=== PATIENT | female | born 1960 | race Caucasian/White ===

== ENCOUNTER 2022-10-01 13:24 | Emergency (ER) | payer OTHER ==
[2022-10-01] MEDS ORDERED: KETOROLAC TROMETHAMINE 15 MG/ML VIAL IVPUSH ONE (13:29)
[2022-10-01] MEDS ORDERED: ONDANSETRON 4 MG/2 ML VIAL IVPB ONE (13:29)
[2022-10-01] MEDS ORDERED: SODIUM CHLORIDE 1,000 ML IV STA (13:29)
[2022-10-01] MEDS ORDERED: ONDANSETRON 4 MG/2 ML VIAL ONE (13:46)
[2022-10-01] MEDS ORDERED: KETOROLAC TROMETHAMINE 15 MG/ML VIAL ONE (13:47)
[2022-10-01 13:58] VITALS: BP 180/100; PULSE 86; RESP 16; TEMP 98.3; BMI 28.7
[2022-10-01 14:15] LABS: HEMATOCRIT 49.2 % (32.4-45.2); HEMOGLOBIN 17.3 G/dL (10.7-15.3); MCH 32.6 pg (25.7-33.7); MCHC 35.2 g/dl (32.0-36.0); MEAN CELL VOLUME 92.7 fl (80-96); RBC 5.31 10^6/uL (3.60-5.2); WHITE BLOOD COUNT 8.4 10^3/uL (4.0-10.8)
[2022-10-01 14:22] LABS: CALCIUM 9.8 mg/dl (8.5-10)
[2022-10-01 14:29] LABS: ALBUMIN 4.6 g/dl (3.4-5.0); BILIRUBIN,TOTAL 1.1 mg/dl (0.2-1); CREATININE 0.9 mg/dl (0.55-1.3); TOT PROT 7.3 g/dl (6.4-8.2)
[2022-10-01 15:30] LABS: EPITHELIAL CELLS MODERATE /hpf
== END 2022-10-01 17:19 | disposition home or self-care (01) ==
LOC: FER 13:24
PROC: 3E0333Z Introduction of Anti-inflammatory into Peripheral Vein, Percutaneous Approach (ICD-10-PCS; principal; 2022-10-01)
PROC: 3E033GC Introduction of Other Therapeutic Substance into Peripheral Vein, Percutaneous Approach (ICD-10-PCS; 2022-10-01)
PROC: 3E0337Z Introduction of Electrolytic and Water Balance Substance into Peripheral Vein, Percutaneous Approach (ICD-10-PCS; 2022-10-01)
DX: N20.0 Calculus of kidney (principal)
CPT/HCPCS: 36415; 74177-TC; 80053; 81003; 81015; 83690; 85027; 99285-25; Q9967